=== PATIENT | female | born 1995 | race Caucasian/White ===

== ENCOUNTER 2021-01-17 09:50 | Emergency (ER) | payer SELFPAY ==
[~2021-01-17] VITALS: Ht 175.3 cm; Wt 122.8 kg
[2021-01-17 10:05] VITALS: BP 145/74
[2021-01-17] MEDS ORDERED: HYDROcodone/APAP 5/325MG 1 TAB TABLET PO ONE (10:15)
--- NOTE | 2021-01-17 10:30 | RAD ---
3 views left wrist without comparison for recent fall yesterday. FINDINGS: There is no fracture, dislocation, or acute osseous abnormality identified. Joints and soft tissues are grossly unremarkable. No radiopaque foreign bodies. IMPRESSION: 1. No acute osseous abnormality. Electronically signed by: Jaydon Acuña MD (01/17/2021 10:28 AM) [id number]
--- NOTE | 2021-01-17 10:31 | PHYS DOC ---
Past History Past Medical History: No Pertinent History Past Surgical History: Cholecystectomy, Gastric Bypass, Tonsillectomy Alcohol Use: None General Adult EDM: Chief Complaint: UPPER EXTREMITY PAIN HPI: HPI: Patient is a 25-year-old female with left upper extremity pain after a fall off a horse yesterday. Patient states she was standing on top of the horse try to do a trick when she fell off to the side and landed on her left outstretched arm. Complaining of pain from her hand to her shoulder. Denies any bleeding or other injury. Denies any paresthesias. She is right-handed. Otherwise been well no recent illness. No prior injuries to left upper extremity in the past. States she took ibuprofen this morning without improvement in pain Review of Systems: Review of Systems: All other systems within normal limits except for as noted in the HPI Current Medications: Current Meds: Current Medications Medications (Trade) Dose Ordered Sig/Kevin Start Time Stop Time Status Last Admin Dose Admin Acetaminophen/ Hydrocodone Bitart (Lortab 5/325) 1 tab 1X ONCE 01/17/21 10:15 01/17/21 10:16 DC Allergies: Allergies: Allergies Coded Allergies Type Severity Reaction Last Updated Verified Penicillins Allergy Unknown 01/17/21 Yes Physical Exam: PE: Constitutional: Well developed, well nourished, no acute distress, non-toxic appearance. [] HENT: Normocephalic, atraumatic, bilateral external ears normal, nose normal. [] Eyes: PERRLA, conjunctiva normal, no discharge. [] Neck: No rigidity, supple, no stridor. [] Cardiovascular: Regular rate and rhythm, brisk cap refill [] Lungs & Thorax: Non labored symmetric respirations, no tachypnea or respiratory distress [] Abdomen: Soft, nondistended. Skin: Warm, dry, no erythema, no rash. [] Back: Unremarkable Extremities: No deformities, range of motion grossly intact, no lower extremity edema. Tenderness over entire left upper exam, point tenderness over scaphoid [] Neurologic: Alert and oriented X 3, no focal deficits noted. Median, ulnar, and radial nerves intact. No sensory deficits [] Psychologic: Affect normal, judgement normal, mood normal. [] Current Patient Data: Vital Signs: Vital Signs Date Time Temp Pulse Resp B/P (MAP) Pulse Ox O2 Delivery O2 Flow Rate FiO2 3/2/21 10:05 97.8 80 16 145/74 (97) 98 Room Air EKG: EKG: [] Radiology/Procedures: Radiology/Procedures: 3 views left wrist without comparison for recent fall yesterday. FINDINGS: There is no fracture, dislocation, or acute osseous abnormality identified. Joints and soft tissues are grossly unremarkable. No radiopaque foreign bodies. IMPRESSION: 1. No acute osseous abnormality.[] Heart Score: Risk Factors: Risk Factors: DM, Current or recent (<one month) smoker, HTN, HLP, family history of CAD, obesity. Risk Scores: Score 0 - 3: 2.5% MACE over next 6 weeks - Discharge Home Score 4 - 6: 20.3% MACE over next 6 weeks - Admit for Clinical Observation Score 7 - 10: 72.7% MACE over next 6 weeks - Early Invasive Strategies Course & Med Decision Making: Course & Med Decision Making Pertinent Labs and Imaging studies reviewed. (See chart for details) Thumb spica splint placed due to snuffbox/scaphoid tenderness [] Dragon Disclaimer: Dragon Disclaimer: This electronic medical record was generated, in whole or in part, using a voice recognition dictation system. Departure Departure: Impression: Primary Impression: Injury of left upper extremity Disposition: 01 DC HOME SELF CARE/HOMELESS Condition: STABLE Referrals: REYMUNDO WU MD (PCP) Patient Instructions: Cast or Splint Care Additional Instructions: Follow-up with your primary care provider in 7 to 10 days for repeat x-rays and exam. Scripts Ibuprofen (IBUPROFEN) 800 Mg Tablet 1 TAB PO TID PRN for PAIN, #30 TAB Prov: ANDREAS MARTIN MD 01/17/21 Hydrocodone Bit/Acetaminophen (HYDROCODONE-APAP 5-325 ) 1 Each Tablet 1 TAB PO PRN Q6HRS PRN for PAIN for 3 Days, #10 TAB 0 Refills Caution: this medication can make you drowsy. Do not drive or operate heavy machinery when using this medication. Prov: ANDREAS MARTIN MD 01/17/21 ANDREAS MARTIN MD Jan 17, 2021 10:31
--- NOTE | 2021-01-17 10:31 | RAD ---
3 views left elbow without comparison for fall yesterday. FINDINGS: No radiographically evident fracture, dislocation, or acute osseous abnormality is identifi ed. No secondary signs of large joint effusion. No degenerative changes. No radiopaque foreign bodies . IMPRESSION: 1. No acute osseous abnormality. Electronically signed by: Jaydon Acuña MD (01/17/2021 10:29 AM) [id number]
--- NOTE | 2021-01-17 10:31 | RAD ---
3 views left shoulder without comparison for recent fall. FINDINGS: There is no fracture, dislocation, or acute osseous abnormality identified. Joints and soft tissues are grossly unremarkable. No significant degenerative changes. IMPRESSION: 1. No acute osseous abnormality. Electronically signed by: Jaydon Acuña MD (01/17/2021 10:28 AM) [id number]
[2021-01-17] MEDS ORDERED: IBUP800T19 PO (11:06)
[2021-01-17] MEDS ORDERED: HYDR-2155 PO (11:06)
== END 2021-01-17 11:10 | disposition home or self-care (01) ==
LOC: ER 09:50
DX: M79.602 Pain in left arm (principal); M25.512 Pain in left shoulder; M25.522 Pain in left elbow; Z90.49 Acquired absence of other specified parts of digestive tract; Z98.890 Other specified postprocedural states; Z90.89 Acquired absence of other organs; Z88.0 Allergy status to penicillin
CPT/HCPCS: 29125; 73030; 73080; 73110; 99284

== ENCOUNTER 2021-03-01 09:47 | Emergency (ER) | payer SELFPAY ==
[~2021-03-01] VITALS: Ht 165.1 cm; Wt 125.8 kg
[~2021-03-01 09:47] MED LIST: HYDR-2155 PO; IBUP800T19 PO
--- NOTE | 2021-03-01 10:23 | EKG ---
[address] [address] Test Date: 2021-03-01 Test Time: 10:17:09 Pat Name: JOHANNA CONKLIN Department: Room: Gender: F Cabinet Assembler: NIDA : 1995 Requested By: GUSTAVO TESFAYE Order Number: [id number] Reading MD: Measurements Intervals [place] Rate: 90 P: 26 CA: 120 QRS: 73 QRSD: 86 T: 30 QT: 346 QTc: 427 Interpretive Statements SINUS RHYTHM NORMAL ECG RI6.02 No previous ECG available for comparison
[2021-03-01 10:34] LABS: BASO # 0.1 x10^3/uL (0.0-0.2); BASO % 1 % (0-3); EOS # 0.2 x10^3/uL (0.0-0.7); EOS % 2 % (0-3); HEMATOCRIT 33.4 % (36.0-47.0); HEMOGLOBIN 10.3 g/dL (12.0-15.5); LYMPH # 1.5 x10^3/uL (1.0-4.8); LYMPH % 23 % (24-48); MEAN CORPUSCULAR HEMOGLOBIN 21 pg (25-35); MEAN CORPUSCULAR HGB CONC 31 g/dL (31-37); MEAN CORPUSCULAR VOLUME 67 fL (79-100); MONO # 0.5 x10^3/uL (0.0-1.1); MONO % 8 % (0-9); NEUT # 4.1 x10^3uL (1.8-7.7); NEUT % 66 % (31-73); PLATELET COUNT 350 x10^3/uL (140-400); RED BLOOD COUNT 4.95 x10^6/uL (3.50-5.40); RED CELL DISTRIBUTION WIDTH 17.6 % (11.5-14.5); WHITE BLOOD COUNT 6.3 x10^3/uL (4.0-11.0)
[2021-03-01 10:42] LABS: CALCIUM 8.9 mg/dL (8.5-10.1); CREATININE 0.8 mg/dL (0.6-1.0); GFR 88.1; POTASSIUM 3.9 mmol/L (3.5-5.1)
[2021-03-01 10:48] LABS: BILIRUBIN,URINE NEG (NEG); CLARITY,URINE CLEAR; COLOR,URINE YELLOW; GLUCOSE,URINE NEG (NEG); NITRITE,URINE NEG (NEG); UROBILINOGEN,URINE 0.2 mg/dL (0.2 mg/dL)
[2021-03-01 10:48] LABS: ALBUMIN 3.6 g/dL (3.4-5.0); ALBUMIN/GLOBULIN RATIO 0.8 (1.0-1.7); TOTAL BILIRUBIN 0.7 mg/dL (0.2-1.0)
[2021-03-01 10:49] LABS: RBC,URINE 0 /HPF (0-2)
[2021-03-01 10:50] LABS: BACTERIA,URINE FEW /HPF (0-FEW); SQUAMOUS EPITHELIAL CELL,UR FEW /LPF
[2021-03-01] MEDS ORDERED: IOHEXOL 240 MG/ML 50ML VIAL. ONE (10:56)
[2021-03-01 11:05] LABS: PLT ESTIMATE ADEQUATE (ADEQUATE)
[2021-03-01 11:06] LABS: ANISOCYTOSIS SLIGHT; HYPOCHROMIA MOD; MICROCYTOSIS MOD
[2021-03-01] MEDS ORDERED: IOHEXOL 240 MG/ML 50ML VIAL. PO ONE (11:15)
[2021-03-01] MEDS ORDERED: CONTRAST GIVEN. MC PRN (11:15)
[2021-03-01] MEDS ORDERED: IOHEXOL 300 MG/ML 75 ML VIAL. IV ONE (11:15)
--- NOTE | 2021-03-01 11:26 | RAD ---
INDICATION: Reason: chest pain / Spl. Instructions: / History: COMPARISON: None. FINDINGS: 2 views obtained of chest Hypoexpanded exam without definite focal airspace consolidation. Cardiac silhouette is unremarkable. No gross osseous destructive lesion. IMPRESSION: * No focal airspace consolidation or edema. Electronically signed by: Timoteo Vogt MD (03/01/2021 11:24 AM) [id number]
--- NOTE | 2021-03-01 12:26 | RAD ---
INDICATION: Reason: abd pain RLQ. DRINKING AT 1110 / Spl. Instructions: / History: . COMPARISON: None. TECHNIQUE: Axial CT images obtained through the abdomen and pelvis with contrast. One or more of the following individualized dose reduction techniques were utilized for this examinat ion: 1. Automated exposure control; 2. Adjustment of the mA and/or kV according to patient size; 3 . Use of iterative reconstruction technique. FINDINGS: Postoperative changes to the stomach. Abdominal aorta is not aneurysmal. No intrahepatic bile duct dilation. Postcholecystectomy changes. No peripancreatic fluid collection. Spleen prominent in size. No hydronephrosis. Urinary bladder has minimal urine within it at time of exam. The appendix is mildly enlarged proximally measuring up to 8 mm and tapers distally. There is no myriam cent inflammatory changes at this time. No dilated loops of bowel to suggest obstruction. there is some degenerative changes of the spine including a disc osteophyte complex at L5-S1 with as sociated central canal stenosis from the osteophytes and disc protrusion. IMPRESSION: * No hydronephrosis or evidence of bowel obstruction. * The appendix is mildly dilated proximally and tapers distally to a normal size. There is no adjace nt inflammatory changes therefore this does not fulfill all of the CT criteria for appendicitis. * Degenerative changes of the spine including disc protrusion and osteophyte formation at L5-S1 whic h appears to abut the nerve roots at this location. Electronically signed by: Timoteo Vogt MD (03/01/2021 12:24 PM) [id number]
[2021-03-01] MEDS ORDERED: METR500T PO (13:42)
[2021-03-01] MEDS ORDERED: HYOS0.1265 SL (13:42)
[2021-03-01] MEDS ORDERED: HYOSCYAMINE 0.125 MG TAB.RAPDIS PO ONE (13:45)
--- NOTE | 2021-03-01 13:46 | PHYS DOC ---
Past History Past Medical History: No Pertinent History Past Surgical History: Cholecystectomy, Gastric Bypass, Tonsillectomy Alcohol Use: None Adult General Chief Complaint Chief Complaint: ABDOMINAL PAIN HPI HPI Patient is 25-year-old previously healthy female presents to the emergency room complaining of right lower quadrant abdominal pain. This started over the last 48 hours. She has had 4 episodes of vomiting since it started. She has been able to continue to eat. She denies any fevers, chills, sweats. She denies any diarrhea or constipation. She has never had anything like this previously. She denies any urinary complaints. She denies any vaginal bleeding or discharge. She denies any kind of trauma. Review of Systems Review of Systems Complete ROS is negative unless otherwise documented in HPI Current Medications Current Medications Current Medications Medications (Trade) Dose Ordered Sig/Kevin Start Time Stop Time Status Last Admin Dose Admin Info (Do NOT chart on this entry -- for MONITORING) 1 each PRN DAILY PRN 03/01/21 11:15 03/03/21 11:14 Iohexol (Omnipaque 240 Mg/ml) 50 ml 1X ONCE 03/01/21 11:15 03/01/21 11:16 DC 03/01/21 11:51 50 ML Iohexol (Omnipaque 300 Mg/ml) 75 ml 1X ONCE 03/01/21 11:15 03/01/21 11:16 DC 03/01/21 11:51 75 ML Allergies Allergies Allergies Coded Allergies Type Severity Reaction Last Updated Verified Penicillins Allergy Unknown 01/17/21 Yes Physical Exam Physical Exam General: Awake, alert, NAD. Well Nourished, well hydrated. Cooperative HEENT: Atraumatic, EOMI, PERRL, airway patent, moist oral mucosa Neck: Supple, trachea midline Respiratory: CTA bilaterally, normal effort, no wheezing/crackles CV: RRR, no murmur, cap refill <2 GI: Soft, nondistended right lower quadrant tenderness, no rebound, no guarding no masses MSK: No obvious deformities Skin: Warm, dry, intact Neuro: A&O x3, speech NL, sensory and motor grossly intact, no focal deficits Psych: Normal affect, normal mood, not suicidal or homicidal Current Patient Data Vital Signs Vital Signs Date Time Temp Pulse Resp B/P (MAP) Pulse Ox O2 Delivery O2 Flow Rate FiO2 03/01/21 12:34 72 20 129/76 (93) 99 Room Air 03/01/21 10:10 97.6 Lab Results Laboratory Tests Test 03/01/21 10:07 03/01/21 10:11 03/01/21 10:18 Urine Collection Type Unknown Urine Color Yellow Urine Clarity Clear Urine pH 6.0 Urine Specific [place] >=1.030 Urine Protein Neg (NEG-TRACE) Urine Glucose (UA) Neg mg/dL (NEG) Urine Ketones (Stick) Neg mg/dL (NEG) Urine Blood Neg (NEG) Urine Nitrite Neg (NEG) Urine Bilirubin Neg (NEG) Urine Urobilinogen Dipstick 0.2 mg/dL (0.2 mg/dL) Urine Leukocyte Esterase Trace (NEG) Urine RBC 0 /HPF (0-2) Urine WBC 1-4 /HPF (0-4) Urine Squamous Epithelial Cells Few /LPF Urine Bacteria Few /HPF (0-FEW) POC Urine HCG, Qualitative hcg negative (Negative) White Blood Count 6.3 x10^3/uL (4.0-11.0) Red Blood Count 4.95 x10^6/uL (3.50-5.40) Hemoglobin 10.3 g/dL (12.0-15.5) L Hematocrit 33.4 % (36.0-47.0) L Mean Corpuscular Volume 67 fL (79-100) L Mean Corpuscular Hemoglobin 21 pg (25-35) L Mean Corpuscular Hemoglobin Concent 31 g/dL (31-37) Red Cell Distribution Width 17.6 % (11.5-14.5) H Platelet Count 350 x10^3/uL (140-400) Neutrophils (%) (Auto) 66 % (31-73) Lymphocytes (%) (Auto) 23 % (24-48) L Monocytes (%) (Auto) 8 % (0-9) Eosinophils (%) (Auto) 2 % (0-3) Basophils (%) (Auto) 1 % (0-3) Neutrophils # (Auto) 4.1 x10^3uL (1.8-7.7) Lymphocytes # (Auto) 1.5 x10^3/uL (1.0-4.8) Monocytes # (Auto) 0.5 x10^3/uL (0.0-1.1) Eosinophils # (Auto) 0.2 x10^3/uL (0.0-0.7) Basophils # (Auto) 0.1 x10^3/uL (0.0-0.2) Platelet Estimate Adequate (ADEQUATE) Hypochromasia Mod Anisocytosis Slight Microcytosis Mod Sodium Level 138 mmol/L (136-145) Potassium Level 3.9 mmol/L (3.5-5.1) Chloride Level 105 mmol/L (98-107) Carbon Dioxide Level 25 mmol/L (21-32) Anion Gap 8 (6-14) Blood Urea Nitrogen 8 mg/dL (7-20) Creatinine 0.8 mg/dL (0.6-1.0) Estimated GFR (Cockcroft-Gault) 88.1 BUN/Creatinine Ratio 10 (6-20) Glucose Level 97 mg/dL (70-99) Calcium Level 8.9 mg/dL (8.5-10.1) Total Bilirubin 0.7 mg/dL (0.2-1.0) Aspartate Amino Transferase (AST) 16 U/L (15-37) Alanine Aminotransferase (ALT) 25 U/L (14-59) Alkaline Phosphatase 66 U/L (46-116) Total Protein 8.0 g/dL (6.4-8.2) Albumin 3.6 g/dL (3.4-5.0) Albumin/Globulin Ratio 0.8 (1.0-1.7) L Lipase 108 U/L (73-393) EKG EKG [] Radiology/Procedures Radiology/Procedures [] Heart Score C/O Chest Pain: N/A Risk Factors: Risk Factors: DM, Current or recent (<one month) smoker, HTN, HLP, family history of CAD, obesity. Risk Scores: Risk Factors: DM, Current or recent (<one month) smoker, HTN, HLP, family history of CAD, obesity. Course & Med Decision Making Course & Med Decision Making Pertinent Labs and Imaging studies reviewed. (See chart for details) Patient is a 25-year-old female who presents to the emergency room complaining of right lower quadrant abdominal pain with vomiting. Patient does have tenderness on exam. Vitals are normal. Lab work was ordered and is normal. Patient does not have a white blood cell count. CT was done which shows maybe some dilation of the appendix but is otherwise normal. I discussed the case with Dr. Sung who states that it does not appear she has appendicitis at this time. Patient's test results and vitals while in the ED were fully reviewed and discussed with the patient. Patient is stable and at this time does not need admission to the hospital. We have discussed strict return precautions and the importance of following up with their Primary Care Physician. Patient stated understanding and was given an opportunity to ask any questions. Patient is in agreement with plan. Dragon Disclaimer Dragon Disclaimer This electronic medical record was generated, in whole or in part, using a voice recognition dictation system. Departure Departure: Impression: Primary Impression: Abdominal pain Disposition: HOME / SELF CARE / HOMELESS Condition: STABLE Referrals: PCP,NO (PCP) Patient Instructions: Abdominal Pain Scripts Hyoscyamine Sulfate (LEVSIN-SL) 0.125 Mg Tab.subl 2-Elmo TAB SL PRN Q4HRS PRN for pain for 5 Days, #60 TAB 0 Refills Prov: GUSTAVO TESFAYE MD 03/01/21 Metronidazole (FLAGYL) 500 Mg Tablet 1 TAB PO BID for infx, #14 TAB Prov: GUSTAVO TESFAYE MD 03/01/21 GUSTAVO TESFAYE MD Mar 01, 2021 13:46
[2021-03-01 14:05] VITALS: BP 118/71
== END 2021-03-01 14:20 | disposition home or self-care (01) ==
LOC: ER 09:47
DX: R10.31 Right lower quadrant pain (principal); R11.10 Vomiting, unspecified; Z90.49 Acquired absence of other specified parts of digestive tract; Z98.84 Bariatric surgery status; Z88.0 Allergy status to penicillin
CPT/HCPCS: 36415; 71046; 74177; 80053; 81001; 81025; 83690; 85025; 87086; 93005; 99285; Q9966; Q9967

== ENCOUNTER 2021-03-06 08:20 | Emergency (ER) | payer SELFPAY ==
[~2021-03-06] VITALS: Ht 165.1 cm; Wt 125.8 kg
[~2021-03-06 08:20] MED LIST changes: +HYOS0.1265 SL; +METR500T PO
[2021-03-06] MEDS ORDERED: ONDANSETRON PF 4 MG/2 ML VIAL. ONE (08:43)
[2021-03-06] MEDS ORDERED: KETOROLAC 30 MG/ML VIAL. ONE (08:43)
[2021-03-06] MEDS ORDERED: IV NORMAL SALINE 1,000ML 1,000 ML IV ONE (08:45)
[2021-03-06] MEDS ORDERED: KETOROLAC 30 MG/ML VIAL. IVP ONE (08:45)
[2021-03-06] MEDS ORDERED: ONDANSETRON PF 4 MG/2 ML VIAL. IVP ONE (08:45)
--- NOTE | 2021-03-06 08:58 | PHYS DOC ---
Past History Past Medical History: No Pertinent History Past Surgical History: Cholecystectomy, Gastric Bypass, Tonsillectomy Alcohol Use: None General Adult EDM: Chief Complaint: ABDOMINAL PAIN HPI: HPI: 25-year-old female returns to the emergency room with continued right lower quadrant abdominal pain. She was seen by my colleague on [address] of the abdomen and pelvis showed an enlarged appendix but no secondary signs of infection. Patient was discharged home with a course of oral antibiotics. She was given instructions to return if her pain did not improve or if it worsened. The patient is having more pain today. She describes it as moderate to severe in intensity especially with palpation of the right lower quadrant. It is painful to ride in a car with bouncing. She denies fever or chills. She has been taking her antibiotics. She has decreased appetite and some nausea without vomiting. She has no other complaints at this time. Review of Systems: Review of Systems: Constitutional: Denies fever or chills Eyes: Denies change in visual acuity HENT: Denies nasal congestion or sore throat Respiratory: Denies cough or shortness of breath Cardiovascular: Denies chest pain or edema GI: Right lower quadrant abdominal pain, nausea. Denies vomiting, bloody stools or diarrhea : Denies dysuria Musculoskeletal: Denies back pain or joint pain Integument: Denies rash Neurologic: Denies headache, focal weakness or sensory changes Endocrine: Denies polyuria or polydipsia Lymphatic: Denies swollen glands Psychiatric: Denies depression or anxiety Current Medications: Current Meds: Current Medications Medications (Trade) Dose Ordered Sig/Kevin Start Time Stop Time Status Last Admin Dose Admin Iohexol (Omnipaque 300 Mg/ml) 75 ml 1X ONCE 03/06/21 09:00 03/06/21 09:01 Ketorolac Tromethamine (Toradol 30mg Vial) 30 mg 1X ONCE 03/06/21 08:45 03/06/21 08:46 DC Ondansetron HCl (Zofran) 4 mg 1X ONCE 03/06/21 08:45 03/06/21 08:46 DC Sodium Chloride 1,000 ml @ 1,000 mls/hr 1X ONCE 03/06/21 08:45 03/06/21 09:44 Allergies: Allergies: Allergies Coded Allergies Type Severity Reaction Last Updated Verified Penicillins Allergy Unknown 03/06/21 Yes Physical Exam: PE: Constitutional: Well developed, well nourished, morbidly obese, no acute distress, non-toxic appearance. [] HENT: Normocephalic, atraumatic, bilateral external ears normal, oropharynx moist, no oral exudates, nose normal. [] Eyes: PERRLA, EOMI, conjunctiva normal, no discharge. [] Neck: Normal range of motion, no tenderness, supple, no stridor. [] Cardiovascular:Heart rate regular rhythm, no murmur [] Lungs & Thorax: Bilateral breath sounds clear to auscultation [] Abdomen: Bowel sounds normal, soft, RLQ tenderness with rebound, no masses, no pulsatile masses. [] Skin: Warm, dry, no erythema, no rash. [] Back: No tenderness, no CVA tenderness. [] Extremities: No tenderness, no cyanosis, no clubbing, ROM intact, no edema. [] Neurologic: Alert and oriented X 3, normal motor function, normal sensory function, no focal deficits noted. [] Psychologic: Affect normal, judgement normal, mood normal. [] Current Patient Data: Vital Signs: Vital Signs Date Time Temp Pulse Resp B/P (MAP) Pulse Ox O2 Delivery O2 Flow Rate FiO2 03/06/21 08:30 97.6 86 18 142/79 (100) 98 Room Air EKG: EKG: [] Radiology/Procedures: Radiology/Procedures: [] Impressions: EXAMINATION: CT ABDOMEN+PELVIS W (CT ABDOMEN/PELVIS WITH IV CONTRAST) CLINICAL HISTORY: RLQ pain, recent enlarged appendix by CT TECHNIQUE: CT of the abdomen and pelvis was performed using standard technique, scanning from just above the dome of the diaphragm to the symphysis pubis follo wing administration of intravenous contrast. CT Dose Reduction Employed: One or more of the following individualized dose red uction techniques were utilized for this examination: 1. Automated exposure control 2. Adjustment of the mA and/or kV according to patient size 3. Use of iterative reconstruction technique. COMPARISON: 03/01/2021 FINDINGS: The appendix and measures up to 8 mm proximally and tapers distally, possibly normal for the patient. Slight prominence of the appendiceal yao, however, this is thought to most likely be related to minimal appendiceal distention. Small area of increased attenuation in the proximal appendix, not diagnostic of a appendicolith and may represent residual enteric contrast from prior CT 5 days ago. No significant periappendiceal inflammatory changes. Slightly more prominent mildly increased attenuation in the small bowel mesentery, predominantly in the left hemiabdomen, with multiple small soft tissue nodules/prominent lymph nodes suggestive of mesenteric panniculitis. Remainder of the study otherwise unchanged. 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 No definitive evidence of acute appendicitis as described. Electronically signed by: Jasiel Taveras DO (03/06/2021 10:11 AM) [id number] DICTATED AND SIGNED BY: JASIEL TAVERAS DO DATE: 03/06/21 0955 CC: CHRISTIN HERNANDEZ DO; PCP,NO ~MTH0 0 Heart Score: C/O Chest Pain: No Risk Factors: Risk Factors: DM, Current or recent (<one month) smoker, HTN, HLP, family history of CAD, obesity. Risk Scores: Score 0 - 3: 2.5% MACE over next 6 weeks - Discharge Home Score 4 - 6: 20.3% MACE over next 6 weeks - Admit for Clinical Observation Score 7 - 10: 72.7% MACE over next 6 weeks - Early Invasive Strategies Course & Med Decision Making: Course & Med Decision Making Pertinent Labs and Imaging studies reviewed. (See chart for details) Patient's labs are remarkable for mild anemia. This is similar to previous lab values. Her white count is normal. Her other labs are unremarkable. The repeat CT does not show changes to the appendix and surrounding area. There is some evidence of mesenteric panniculitis. See official read for more details. I suspect the patient's discomfort is more related to this process which could be viral. She is already on antibiotics which she should continue. It does not appear that appendix surgery is warranted at this time. She is stable for discharge. [] Dragon Disclaimer: Dragon Disclaimer: This electronic medical record was generated, in whole or in part, using a voice recognition dictation system. Departure Departure: Impression: Primary Impression: Mesenteric panniculitis Disposition: HOME / SELF CARE / HOMELESS Condition: STABLE Referrals: PCP,NO (PCP) Patient Instructions: Mesenteric Adenitis CHRISTIN HERNANDEZ DO Mar 06, 2021 08:58
[2021-03-06] MEDS ORDERED: IOHEXOL 300 MG/ML 75 ML VIAL. IV ONE (09:00)
[2021-03-06 09:11] LABS: BASO % 1 % (0-3); EOS # 0.2 x10^3/uL (0.0-0.7); EOS % 3 % (0-3); HEMATOCRIT 34.1 % (36.0-47.0); HEMOGLOBIN 10.4 g/dL (12.0-15.5); LYMPH # 1.3 x10^3/uL (1.0-4.8); LYMPH % 22 % (24-48); MEAN CORPUSCULAR HEMOGLOBIN 21 pg (25-35); MEAN CORPUSCULAR HGB CONC 31 g/dL (31-37); MEAN CORPUSCULAR VOLUME 67 fL (79-100); MONO # 0.4 x10^3/uL (0.0-1.1); MONO % 7 % (0-9); NEUT # 3.9 x10^3uL (1.8-7.7); NEUT % 67 % (31-73); PLATELET COUNT 342 x10^3/uL (140-400); RED BLOOD COUNT 5.05 x10^6/uL (3.50-5.40); RED CELL DISTRIBUTION WIDTH 17.1 % (11.5-14.5); WHITE BLOOD COUNT 5.8 x10^3/uL (4.0-11.0)
[2021-03-06 09:20] LABS: CREATININE 0.8 mg/dL (0.6-1.0); GFR 88.1; POTASSIUM 4.2 mmol/L (3.5-5.1)
[2021-03-06 09:25] LABS: ALBUMIN 3.5 g/dL (3.4-5.0); ALBUMIN/GLOBULIN RATIO 0.8 (1.0-1.7); TOTAL BILIRUBIN 0.8 mg/dL (0.2-1.0); TOTAL PROTEIN 8.1 g/dL (6.4-8.2)
--- NOTE | 2021-03-06 10:13 | RAD ---
EXAMINATION: CT ABDOMEN+PELVIS W (CT ABDOMEN/PELVIS WITH IV CONTRAST) CLINICAL HISTORY: RLQ pain, recent enlarged appendix by CT TECHNIQUE: CT of the abdomen and pelvis was performed using standard technique, scanning from just ab ove the dome of the diaphragm to the symphysis pubis following administration of intravenous contrast . CT Dose Reduction Employed: One or more of the following individualized dose reduction techniques wer e utilized for this examination: 1. Automated exposure control 2. Adjustment of the mA and/or kV ac cording to patient size 3. Use of iterative reconstruction technique. COMPARISON: 03/01/2021 FINDINGS: The appendix and measures up to 8 mm proximally and tapers distally, possibly normal for the patient. Slight prominence of the appendiceal yao, however, this is thought to most likely be related to mi nimal appendiceal distention. Small area of increased attenuation in the proximal appendix, not diagn ostic of a appendicolith and may represent residual enteric contrast from prior CT 5 days ago. No sig nificant periappendiceal inflammatory changes. Slightly more prominent mildly increased attenuation in the small bowel mesentery, predominantly in t he left hemiabdomen, with multiple small soft tissue nodules/prominent lymph nodes suggestive of mese nteric panniculitis. Remainder of the study otherwise unchanged. 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 No definitive evidence of acute appendicitis as described. Electronically signed by: Jasiel Moore DO (03/06/2021 10:11 AM) [id number]
[2021-03-06 10:17] LABS: HYPOCHROMIA MOD
[2021-03-06 10:18] LABS: MICROCYTOSIS MOD; PLT ESTIMATE ADEQUATE (ADEQUATE)
[2021-03-06 10:42] VITALS: BP 117/65
== END 2021-03-06 10:48 | disposition home or self-care (01) ==
LOC: ER 08:20
DX: K65.4 Sclerosing mesenteritis (principal); Z90.49 Acquired absence of other specified parts of digestive tract; Z95.1 Presence of aortocoronary bypass graft; Z88.0 Allergy status to penicillin
CPT/HCPCS: 36415; 74177; 80053; 85025; 96361; 96374; 96375; 99285; J1885; J2405; J7030; Q9967

== ENCOUNTER 2021-07-03 14:15 | Emergency (ER) | payer SELFPAY ==
[~2021-07-03] VITALS: Ht 165.1 cm; Wt 130.0 kg
[2021-07-03 15:06] VITALS: BP 145/95
[2021-07-03 15:07] LABS: BASO % 0 % (0-3); EOS # 0.1 x10^3/uL (0.0-0.7); EOS % 1 % (0-3); HEMATOCRIT 39.7 % (36.0-47.0); HEMOGLOBIN 12.5 g/dL (12.0-15.5); LYMPH # 1.3 x10^3/uL (1.0-4.8); LYMPH % 18 % (24-48); MEAN CORPUSCULAR HEMOGLOBIN 23 pg (25-35); MEAN CORPUSCULAR HGB CONC 31 g/dL (31-37); MEAN CORPUSCULAR VOLUME 74 fL (79-100); MONO # 0.4 x10^3/uL (0.0-1.1); MONO % 5 % (0-9); NEUT # 5.7 x10^3uL (1.8-7.7); NEUT % 75 % (31-73); PLATELET COUNT 283 x10^3/uL (140-400); RED BLOOD COUNT 5.36 x10^6/uL (3.50-5.40); RED CELL DISTRIBUTION WIDTH 15.9 % (11.5-14.5); WHITE BLOOD COUNT 7.5 x10^3/uL (4.0-11.0)
[2021-07-03 15:46] LABS: CALCIUM 8.5 mg/dL (8.5-10.1); CREATININE 0.8 mg/dL (0.6-1.0); GFR 88.1; POTASSIUM 3.3 mmol/L (3.5-5.1)
[2021-07-03 15:54] LABS: ALBUMIN 3.7 g/dL (3.4-5.0); ALBUMIN/GLOBULIN RATIO 0.9 (1.0-1.7); TOTAL BILIRUBIN 0.7 mg/dL (0.2-1.0); TOTAL PROTEIN 7.7 g/dL (6.4-8.2)
--- NOTE | 2021-07-03 16:46 | RAD ---
US OB <14 WKS +TV History: Vaginal spotting in . Comparison: CT abdomen pelvis 03/06/2021 Technique: Sonographic examination of the pelvis was performed with transabdominal and transvaginal t echnique. Findings: Uterus- Uterine parenchyma: Homogeneous without fibroids. Uterine measurements: 7.6 x 3.1 x 4.4 cm Cervix: Unremarkable. Endometrium- Endometrial Stripe: No gestational sac. Yolk sac identified. No abnormal fluid collections in the end ometrial cavity, no obvious mass, and no abnormal blood flow within the endometrium by Doppler. Thickness: 11 mm. Adnexa- Right Ovary: Identified and appears normal. Size: 2.8 x 1.7 x 2.5 cm Doppler: Normal. Left Ovary: Not identified with transabdominal or transvaginal technique. Mass: No abnormal adnexal masses. Fluid: No abnormal free fluid in the pelvis. Additional findings: None. Impression: 1. No intrauterine gestation or ectopic identified. This is consistent with a of unknown location. Differential includes early intrauterine , occult ectopic or failed early . Recommend close follow-up with beta hCG testing and repeat ultrasound if indicated. 2. Nonvisualization of the left ovary. No left adnexal masses. Electronically signed by: Sohail Jeong MD (07/03/2021 4:44 PM) [id number]
--- NOTE | 2021-07-03 17:21 | PHYS DOC ---
Past History Past Medical History: No Pertinent History (CONCETTA CANTU APRN) Past Surgical History: Appendectomy, Cholecystectomy, Gastric Bypass, Tonsillectomy (CONCETTA CANTU APRN) Alcohol Use: None (CONCETTA CANTU APRN) General Adult EDM: Chief Complaint: DIZZY/LIGHT HEADED HPI: HPI: Patient is a 25-year-old female who presents with light vaginal bleeding with . Patient states "when I wiped I had some light bleeding". Patient does report some light cramping in her lower abdomen. Last menstrual period was 05/26. G1, P0. Denies medical history. (CONCETTA CANTU APRN) Review of Systems: Review of Systems: Constitutional: Denies fever or chills Eyes: Denies change in visual acuity HENT: Denies nasal congestion or sore throat Respiratory: Denies cough or shortness of breath Cardiovascular: Denies chest pain or edema GI: Reports lower abdominal pain.denies nausea, vomiting, bloody stools or di arrhea /vaginal: Denies dysuria. Reports light vaginal bleeding. Musculoskeletal: Denies back pain or joint pain Integument: Denies rash Neurologic: Denies headache, focal weakness or sensory changes Endocrine: Denies polyuria or polydipsia Lymphatic: Denies swollen glands Psychiatric: Denies depression or anxiety (CONCETTA CANTU APRN) Allergies: Allergies: Allergies Coded Allergies Type Severity Reaction Last Updated Verified Penicillins Allergy Unknown 03/06/21 Yes (CONCETTA CANTU APRN) Physical Exam: PE: Constitutional: Well developed, well nourished, no acute distress, non-toxic appearance. [] HENT: Normocephalic, atraumatic, bilateral external ears normal, oropharynx moist, no oral exudates, nose normal. [] Eyes: PERRLA, EOMI, conjunctiva normal, no discharge. [] Neck: Normal range of motion, no tenderness, supple, no stridor. [] Cardiovascular:Heart rate regular rhythm, no murmur [] Lungs & Thorax: Bilateral breath sounds clear to auscultation [] Abdomen: Bowel sounds normal, soft, no tenderness, no masses, no pulsatile masses. [] Skin: Warm, dry, no erythema, no rash. [] Back: No tenderness, no CVA tenderness. [] Extremities: No tenderness, no cyanosis, no clubbing, ROM intact, no edema. [] Neurologic: Alert and oriented X 3, normal motor function, normal sensory fun ction, no focal deficits noted. [] Psychologic: Affect normal, judgement normal, mood normal. [] (CONCETTA CANTU APRN) Current Patient Data: Labs: Laboratory Tests Test 07/03/21 14:40 07/03/21 15:15 07/03/21 16:00 07/03/21 16:06 White Blood Count 7.5 x10^3/uL (4.0-11.0) Red Blood Count 5.36 x10^6/uL (3.50-5.40) Hemoglobin 12.5 g/dL (12.0-15.5) Hematocrit 39.7 % (36.0-47.0) Mean Corpuscular Volume 74 fL (79-100) L Mean Corpuscular Hemoglobin 23 pg (25-35) L Mean Corpuscular Hemoglobin Concent 31 g/dL (31-37) Red Cell Distribution Width 15.9 % (11.5-14.5) H Platelet Count 283 x10^3/uL (140-400) Neutrophils (%) (Auto) 75 % (31-73) H Lymphocytes (%) (Auto) 18 % (24-48) L Monocytes (%) (Auto) 5 % (0-9) Eosinophils (%) (Auto) 1 % (0-3) Basophils (%) (Auto) 0 % (0-3) Neutrophils # (Auto) 5.7 x10^3uL (1.8-7.7) Lymphocytes # (Auto) 1.3 x10^3/uL (1.0-4.8) Monocytes # (Auto) 0.4 x10^3/uL (0.0-1.1) Eosinophils # (Auto) 0.1 x10^3/uL (0.0-0.7) Basophils # (Auto) 0.0 x10^3/uL (0.0-0.2) Sodium Level 141 mmol/L (136-145) Potassium Level 3.3 mmol/L (3.5-5.1) L Chloride Level 105 mmol/L (98-107) Carbon Dioxide Level 24 mmol/L (21-32) Anion Gap 12 (6-14) Blood Urea Nitrogen 8 mg/dL (7-20) Creatinine 0.8 mg/dL (0.6-1.0) Estimated GFR (Cockcroft-Gault) 88.1 BUN/Creatinine Ratio 10 (6-20) Glucose Level 85 mg/dL (70-99) Calcium Level 8.5 mg/dL (8.5-10.1) Total Bilirubin 0.7 mg/dL (0.2-1.0) Aspartate Amino Transferase (AST) 15 U/L (15-37) Alanine Aminotransferase (ALT) 26 U/L (14-59) Alkaline Phosphatase 61 U/L (46-116) Total Protein 7.7 g/dL (6.4-8.2) Albumin 3.7 g/dL (3.4-5.0) Albumin/Globulin Ratio 0.9 (1.0-1.7) L Maternal Serum HCG Beta Subunit 218 mIU/mL (0-6) H POC Urine HCG, Qualitative hcg positive (Negative) Vital Signs: Vital Signs Date Time Temp Pulse Resp B/P (MAP) Pulse Ox O2 Delivery O2 Flow Rate FiO2 07/03/21 15:06 94 18 145/95 99 (CONCETTA CANTU APRN) EKG: EKG: [] (CONCETTA CANTU APRN) Radiology/Procedures: Radiology/Procedures: [] (CONCETTA CANTU APRN) Heart Score: C/O Chest Pain: No Risk Factors: Risk Factors: DM, Current or recent (<one month) smoker, HTN, HLP, family history of CAD, obesity. Risk Scores: Score 0 - 3: 2.5% MACE over next 6 weeks - Discharge Home Score 4 - 6: 20.3% MACE over next 6 weeks - Admit for Clinical Observation Score 7 - 10: 72.7% MACE over next 6 weeks - Early Invasive Strategies (CONCETTA CANTU APRN) Course & Med Decision Making: Course & Med Decision Making Pertinent Labs and Imaging studies reviewed. (See chart for details) [] 25-year-old female presents with light vaginal bleeding and mild abdominal cramping in her lower abdomen. Last menstrual period was 05/26. Patient is G1, P0. Quant hCG was drawn. Discussed results with patient. Explained to patient that she would need to follow-up with her SEWAGE SCREEN OPERATOR in 48 hours to have blood redrawn or return to the ER for second quant levels. Patient is most likely too early on in to see gestational sac. Patient states that she understands discharge instructions. Patient was given strict return precautions for an increase in pain, bleeding. Patient is hemodynamically stable upon disposition. (CONCETTA CANTU APRN) Course & Med Decision Making I oversaw on the above date of service of this patient. This patient was evaluated, examined, treated, and dispositioned from the emergency department by the mid-level practitioner. Although I was working at the time , no assistance was requested. Electronically signed, Clark Grover DO (CLARK GROVER DO) Ananya Disclaimer: Ananya Disclaimer: This electronic medical record was generated, in whole or in part, using a voice recognition dictation system. (CONCETTA CANTU APRN) Departure Departure: Impression: Primary Impression: Vaginal bleeding in Disposition: HOME / SELF CARE / HOMELESS Condition: STABLE Referrals: PCP,NO (PCP) Patient Instructions: Vaginal Bleeding During , [id number] Additional Instructions: You were seen in the emergency room for vaginal bleeding. Your most likely to early on in the to be able to identify gestational sac on ultrasound. Your quant hCG levels were drawn. You will need to return to the emergency room or to your SEWAGE SCREEN OPERATOR in 48 hours to have a second level drawn. Return to the emergency room if you have an increase in bleeding or worsening pain. You can take Tylenol for discomfort. EMERGENCY DEPARTMENT GENERAL DISCHARGE INSTRUCTIONS Thank you for coming to [facility] (ED) today and trusting us with you care. We trust that you had a positivie experience in our Emergency Department. If you wish to speak to the department management, you may call the director at [phone]. YOUR FOLLOW UP INSTRUCTIONS ARE FOLLOWS: 1. Do you have a private Doctor? If you do not have a private doctor, please ask for a resource list of physicians or clinics that may be able to assist you with follow up care. 2. The Emergency Physician has interpreted your x-rays. The X-Ray specialist will also review them. If there is a change in the findings, you will be notified in 48 hours when at all possible. 3. A lab test or culture has been done, your results will be reviewed and you will be notified if you need a change in treatment. ADDITIONAL INSTRUCTIONS AND INFORMATION: 1. Your care today has been supervised by a physician who is specially trained in emergency care. Many problems require more than one evaluation for a complete diagnosis and treatment. We recommend that you schedule your follow up appointment as recommended to ensure complete treatment of you illness or injury. If you are unable to obtain follow up care and continue to have a problem, or if your condition worsens, we recommend that you return to the ED. 2. We are not able to safely determine your condition over the phone nor are we able to give sound medical advice over the phone. For these safety reasons, if you call for medical advice we will ask you to come to the ED for further evaluation. 3. If you have any questions regarding these discharge instructions please call the ED at [phone]. SAFETY INFORMATION: In the interest of safety, wellness, and injury prevention; we encourage you to wear your sealbelt, if you smoke; quite smoking, and we encourage family to use a protective helmet for bicycling and other sporting events that present an increased risk for head injury. IF YOUR SYMPTOMS WORSEN OR NEW SYMPTOMS DEVELOP, OR YOU HAVE CONCERNS ABOUT YOUR CONDITION; OR IF YOUR CONDITION WORSENS WHILE YOU ARE WAITING FOR YOUR FOLLOW UP APPOINTMENT; EITHER CONTACT YOUR PRIMARY CARE DOCTOR, THE PHYSICIAN WHOSE NAME AND NUMBER YOU WERE GIVEN, OR RETURN TO THE ED IMMEDIATELY. CONCETTA CANTU APRN Jul 03, 2021 17:21 CLARK GROVER DO Jul 04, 2021 06:54
--- NOTE | 2021-07-03 17:36 | EKG ---
[address] [address] Test Date: 2021-07-03 Test Time: 14:55:33 Pat Name: JOHANNA CONKLIN Department: Room: Gender: F Circular Knife Cutter Machine: ESTEFANIA : 1995 Requested By: CLARK GROVRE Order Number: [id number] Reading MD: Measurements Intervals [place] Rate: 94 P: 22 AL: 124 QRS: 65 QRSD: 88 T: 19 QT: 348 QTc: 435 Interpretive Statements SINUS RHYTHM NORMAL ECG RI6.02 No previous ECG available for comparison
== END 2021-07-03 17:26 | disposition home or self-care (01) ==
LOC: ER 14:15
DX: O20.8 Other hemorrhage in early pregnancy (principal); Z3A.01 Less than 8 weeks gestation of pregnancy
CPT/HCPCS: 36415; 76801; 76817; 80053; 81025; 84702; 85025; 86850; 86900; 86901; 93005; 99285-25

== ENCOUNTER 2021-07-05 12:58 | Emergency (ER) | payer SELFPAY ==
[~2021-07-05] VITALS: Ht 160 cm; Wt 131.0 kg
[2021-07-05 13:05] VITALS: BP 127/71
--- NOTE | 2021-07-05 13:59 | PHYS DOC ---
Past History Past Medical History: No Pertinent History (ISAURO DREW APRN) Past Surgical History: Appendectomy, Cholecystectomy, Gastric Bypass, Tonsillectomy (ISAURO DREW APRN) Alcohol Use: None (ISAURO DREW APRN) General Adult EDM: Chief Complaint: ABNORMAL LABS HPI: HPI: Patient is a 25-year-old female being seen in the ER for a lab draw. Patient reports that she is 5 weeks and was seen a few days ago in this ER for light pink vaginal bleeding. At that time her beta hCG levels were 218 and she had a normal ultrasound. She was told to follow-up in 2 days with her OB to have her beta hCG levels rechecked. Patient reports that she was unable to get into her OB who is Dr. Weiss in a timely manner so decided to return here to have her beta hCG levels checked. Patient denies any abdominal/pelvic pain, vaginal bleeding, nausea, vomiting. Her last menstrual period was May 26. G1, P0. (ISAURO DREW APRN) Review of Systems: Review of Systems: 14 body systems of the review of systems have been reviewed. See HPI for pertinent positive and negative responses, otherwise all other systems are negative, nonpertinent or noncontributory (ISAURO DREW APRN) Allergies: Allergies: Allergies Coded Allergies Type Severity Reaction Last Updated Verified Penicillins Allergy Unknown 03/06/21 Yes (ISAURO DREW APRN) Physical Exam: PE: Constitutional: Well developed, well nourished, no acute distress, non-toxic appearance. [] HENT: Normocephalic, atraumatic Eyes: PERRL, EOMI, conjunctiva normal, no discharge. [] Neck: Normal range of motion, no stridor Cardiovascular:Heart rate regular rhythm, no murmur [] Lungs & Thorax: Bilateral breath sounds clear to auscultation [] Abdomen: Bowel sounds normal, soft, no tenderness, no masses, no pulsatile m asses. [] Skin: Warm, dry, no erythema, no rash. [] Back: Normal range of motion Extremities: No tenderness, no cyanosis, no clubbing, ROM intact, no edema. [] Neurologic: Alert and oriented X 3, normal motor function, normal sensory function, no focal deficits noted. [] Psychologic: Affect normal, judgement normal, mood normal. [] (ISAURO DREW APRN) Current Patient Data: Labs: Laboratory Tests Test 07/05/21 13:40 Maternal Serum HCG Beta Subunit 355 mIU/mL (ISAURO DREW APRN) EKG: EKG: [] (ISAURO DREW APRN) Radiology/Procedures: Radiology/Procedures: [] (ISAURO DREW APRN) Heart Score: C/O Chest Pain: No Risk Factors: Risk Factors: DM, Current or recent (<one month) smoker, HTN, HLP, family history of CAD, obesity. Risk Scores: Score 0 - 3: 2.5% MACE over next 6 weeks - Discharge Home Score 4 - 6: 20.3% MACE over next 6 weeks - Admit for Clinical Observation Score 7 - 10: 72.7% MACE over next 6 weeks - Early Invasive Strategies (ISAURO DREW APRN) Course & Med Decision Making: Course & Med Decision Making Pertinent Labs and Imaging studies reviewed. (See chart for details) [] Patient is a 25-year-old female who presents to the ER for a beta hCG draw. Beta-hCG drawn was performed in the ER today and it showed a level of 355. 2days ago patient's beta-hCG level is 218. This is about a 50% increase. Patient advised to follow-up with her PURCHASING DEPARTMENT CLERK for repeat beta hCG level checks. I discussed with patient all findings and diagnostic testing as well as the need to follow-up with PCP for further evaluation and treatment or return to the ER if any new or worsening symptoms. Strict return precautions were also discussed at length. Patient voiced understanding and agreement with the plan. Patient is hemodynamically stable at the time of disposition. (ISAURO DREW APRN) Dragon Disclaimer: Dragon Disclaimer: This electronic medical record was generated, in whole or in part, using a voice recognition dictation system. (ISAURO DREW APRN) Departure Departure: Impression: Primary Impression: Routine lab draw Disposition: HOME / SELF CARE / HOMELESS Condition: GOOD Referrals: PCP,DAVID (PCP) Patient Instructions: ABCs of Additional Instructions: You were seen in the ER for a beta-hCG level draw. Your beta hCG level 2 days ago was 218 and on the regional today is 355. This is reassuring. Please follow-up with your OB as soon as possible. Take vitamins at home. Please return to the ER if you develop abdominal pain, vaginal bleeding, intractable nausea or vomiting or any new concerns. EMERGENCY DEPARTMENT GENERAL DISCHARGE INSTRUCTIONS Thank you for coming to [facility] (ED) today and trusting us with you care. We trust that you had a positivie experience in our Emergency Department. If you wish to speak to the department management, you may call the director at [phone]. YOUR FOLLOW UP INSTRUCTIONS ARE FOLLOWS: 1. Do you have a private Doctor? If you do not have a private doctor, please ask for a resource list of physicians or clinics that may be able to assist you with follow up care. 2. The Emergency Physician has interpreted your x-rays. The X-Ray specialist will also review them. If there is a change in the findings, you will be notified in 48 hours when at all possible. 3. A lab test or culture has been done, your results will be reviewed and you will be notified if you need a change in treatment. ADDITIONAL INSTRUCTIONS AND INFORMATION: 1. Your care today has been supervised by a physician who is specially trained in emergency care. Many problems require more than one evaluation for a complete diagnosis and treatment. We recommend that you schedule your follow up appointment as recommended to ensure complete treatment of you illness or injury. If you are unable to obtain follow up care and continue to have a problem, or if your condition worsens, we recommend that you return to the ED. 2. We are not able to safely determine your condition over the phone nor are we able to give sound medical advice over the phone. For these safety reasons, if you call for medical advice we will ask you to come to the ED for further evaluation. 3. If you have any questions regarding these discharge instructions please call the ED at [phone]. SAFETY INFORMATION: In the interest of safety, wellness, and injury prevention; we encourage you to wear your sealbelt, if you smoke; quite smoking, and we encourage family to use a protective helmet for bicycling and other sporting events that present an increased risk for head injury. IF YOUR SYMPTOMS WORSEN OR NEW SYMPTOMS DEVELOP, OR YOU HAVE CONCERNS ABOUT YOUR CONDITION; OR IF YOUR CONDITION WORSENS WHILE YOU ARE WAITING FOR YOUR FOLLOW UP APPOINTMENT; EITHER CONTACT YOUR PRIMARY CARE DOCTOR, THE PHYSICIAN WHOSE NAME AND NUMBER YOU WERE GIVEN, OR RETURN TO THE ED IMMEDIATELY. Attending Signature Attending Signature I have reviewed the PA/SOCIOLOGY FACULTY MEMBER's note and plan of care. I was available for consultation as needed during the patient's visit in the emergency department. I agree with the clinical impression, plan, and disposition. (SARAH DORANTES DO) ISAURO DREW APRN Jul 05, 2021 13:59 SARAH DORANTES DO Jul 05, 2021 20:36
== END 2021-07-05 15:15 | disposition home or self-care (01) ==
LOC: ER 12:58
DX: O46.91 Antepartum hemorrhage, unspecified, first trimester (principal); Z3A.01 Less than 8 weeks gestation of pregnancy; Z88.0 Allergy status to penicillin
CPT/HCPCS: 36415; 84702; 99283

== ENCOUNTER 2021-07-07 11:46 | Emergency (ER) | payer OTHER ==
[~2021-07-07] VITALS: Ht 160 cm; Wt 122.0 kg
[2021-07-07 12:49] LABS: BASO # 0.1 x10^3/uL (0.0-0.2); BASO % 1 % (0-3); EOS # 0.1 x10^3/uL (0.0-0.7); EOS % 2 % (0-3); HEMATOCRIT 36.3 % (36.0-47.0); HEMOGLOBIN 11.2 g/dL (12.0-15.5); LYMPH # 1.4 x10^3/uL (1.0-4.8); LYMPH % 20 % (24-48); MEAN CORPUSCULAR HEMOGLOBIN 23 pg (25-35); MEAN CORPUSCULAR HGB CONC 31 g/dL (31-37); MEAN CORPUSCULAR VOLUME 75 fL (79-100); MONO # 0.4 x10^3/uL (0.0-1.1); MONO % 6 % (0-9); NEUT # 4.9 x10^3uL (1.8-7.7); NEUT % 71 % (31-73); PLATELET COUNT 258 x10^3/uL (140-400); RED BLOOD COUNT 4.81 x10^6/uL (3.50-5.40); WHITE BLOOD COUNT 6.9 x10^3/uL (4.0-11.0)
[2021-07-07 12:56] LABS: CALCIUM 8.1 mg/dL (8.5-10.1); CREATININE 0.8 mg/dL (0.6-1.0); GFR 88.1; POTASSIUM 3.8 mmol/L (3.5-5.1)
[2021-07-07 13:02] LABS: ALBUMIN 3.4 g/dL (3.4-5.0); ALBUMIN/GLOBULIN RATIO 0.9 (1.0-1.7); TOTAL BILIRUBIN 0.5 mg/dL (0.2-1.0); TOTAL PROTEIN 7.3 g/dL (6.4-8.2)
[2021-07-07 13:27] LABS: BACTERIA,URINE 0 /HPF (0-FEW); BILIRUBIN,URINE NEG (NEG); CLARITY,URINE CLOUDY; COLOR,URINE PINK; GLUCOSE,URINE NEG (NEG); NITRITE,URINE NEG (NEG); RBC,URINE TNTC /HPF (0-2); SQUAMOUS EPITHELIAL CELL,UR FEW /LPF; UROBILINOGEN,URINE 0.2 mg/dL (0.2 mg/dL); WBC,URINE OCC /HPF (0-4)
[2021-07-07 13:28] LABS: HYALINE CASTS, URINE OCC /HPF
--- NOTE | 2021-07-07 13:50 | RAD ---
Exam performed: OB sonogram less than 14 weeks. History:Vaginal bleeding, patient is . Increasing serial beta-hCG Date of service: 07/07/2021. Comparison: Transvaginal ultrasound from 06/18/2021 Technique: Transvaginal. Findings: The uterus measures 7.5 x 3.5 x 3.5cm. There is a tiny gestational sac in the lower endometrial cavi ty. The mean sac diameter measures 0.2 cm corresponding to 4 weeks and 6 days with a sonographic EDC of 03/10/2022. There is some fluid in the cervix. No pole is identified. The right ovary measures 3.1 x 2.4 x 1.9 cm. The left ovary is not clearly seen. No solid or cystic m ass lesions identified. Impression: Single tiny gestational sac seen in the lower endometrial cavity of maturity 4 weeks and 6 days with out pole or yolk sac. Given presence of progressively increasing beta-hCG, very early intrauter ine is suspected. Continued serial beta-hCG levels and short-term interval follow-up ultras ound may be obtained to ensure interval progression of Electronically signed by: Alfreda Bustamante MD (07/07/2021 1:48 PM) [id number]
[2021-07-07 14:28] VITALS: BP 142/72
--- NOTE | 2021-07-07 14:37 | PHYS DOC ---
Past History Past Medical History: No Pertinent History (CONCETTA CANTU APRN) Past Surgical History: Appendectomy, Cholecystectomy, Gastric Bypass, Tonsillectomy, Other Additional Past Surgical Histo: LEG SURGERY (CONCETTA CANTU APRN) Alcohol Use: None (CONCETTA CANTU APRN) General Adult EDM: Chief Complaint: VAGINAL BLEEDING HPI: HPI: Patient is a 25-year-old female who presents with vaginal bleeding, lower abdominal pain with . Patient was seen on Saturday and also Saturday to recheck her quant levels. Patient states this morning she started having clots with her bleeding and an increase in pain. Patient denies taking anything for discomfort or needing anything at this time. G1, P0. (CONCETTA CANTU APRN) Review of Systems: Review of Systems: Constitutional: Denies fever or chills Eyes: Denies change in visual acuity HENT: Denies nasal congestion or sore throat Respiratory: Denies cough or shortness of breath Cardiovascular: Denies chest pain or edema GI: Reports lower abdominal pain, denies nausea, vomiting, bloody stools or diarrhea /vaginal: Denies dysuria. Reports vaginal bleeding and clotting Musculoskeletal: Denies back pain or joint pain Integument: Denies rash Neurologic: Denies headache, focal weakness or sensory changes Endocrine: Denies polyuria or polydipsia Lymphatic: Denies swollen glands Psychiatric: Denies depression or anxiety (CONCETTA CANTU APRN) Allergies: Allergies: Allergies Coded Allergies Type Severity Reaction Last Updated Verified Penicillins Allergy Unknown 07/07/21 Yes (CONCETTA CANTU APRN) Physical Exam: PE: Constitutional: Well developed, well nourished, no acute distress, non-toxic appearance. [] HENT: Normocephalic, atraumatic, bilateral external ears normal, oropharynx moist, no oral exudates, nose normal. [] Eyes: PERRLA, EOMI, conjunctiva normal, no discharge. [] Neck: Normal range of motion, no tenderness, supple, no stridor. [] Cardiovascular:Heart rate regular rhythm, no murmur [] Lungs & Thorax: Bilateral breath sounds clear to auscultation [] Abdomen: Bowel sounds normal, soft, no tenderness, no masses, no pulsatile masses. [] Skin: Warm, dry, no erythema, no rash. [] Back: No tenderness, no CVA tenderness. [] Extremities: No tenderness, no cyanosis, no clubbing, ROM intact, no edema. [] Neurologic: Alert and oriented X 3, normal motor function, normal sensory function, no focal deficits noted. [] Psychologic: Affect normal, judgement normal, mood normal. [] (CONCETTA CANTU APRN) Current Patient Data: Labs: Laboratory Tests Test 07/07/21 12:24 07/07/21 13:02 07/07/21 13:15 White Blood Count 6.9 x10^3/uL (4.0-11.0) Red Blood Count 4.81 x10^6/uL (3.50-5.40) Hemoglobin 11.2 g/dL (12.0-15.5) L Hematocrit 36.3 % (36.0-47.0) Mean Corpuscular Volume 75 fL (79-100) L Mean Corpuscular Hemoglobin 23 pg (25-35) L Mean Corpuscular Hemoglobin Concent 31 g/dL (31-37) Red Cell Distribution Width 16.0 % (11.5-14.5) H Platelet Count 258 x10^3/uL (140-400) Neutrophils (%) (Auto) 71 % (31-73) Lymphocytes (%) (Auto) 20 % (24-48) L Monocytes (%) (Auto) 6 % (0-9) Eosinophils (%) (Auto) 2 % (0-3) Basophils (%) (Auto) 1 % (0-3) Neutrophils # (Auto) 4.9 x10^3uL (1.8-7.7) Lymphocytes # (Auto) 1.4 x10^3/uL (1.0-4.8) Monocytes # (Auto) 0.4 x10^3/uL (0.0-1.1) Eosinophils # (Auto) 0.1 x10^3/uL (0.0-0.7) Basophils # (Auto) 0.1 x10^3/uL (0.0-0.2) Maternal Serum HCG Beta Subunit 676 mIU/mL (0-6) H Sodium Level 142 mmol/L (136-145) Potassium Level 3.8 mmol/L (3.5-5.1) Chloride Level 106 mmol/L (98-107) Carbon Dioxide Level 25 mmol/L (21-32) Anion Gap 11 (6-14) Blood Urea Nitrogen 8 mg/dL (7-20) Creatinine 0.8 mg/dL (0.6-1.0) Estimated GFR (Cockcroft-Gault) 88.1 BUN/Creatinine Ratio 10 (6-20) Glucose Level 113 mg/dL (70-99) H Calcium Level 8.1 mg/dL (8.5-10.1) L Total Bilirubin 0.5 mg/dL (0.2-1.0) Aspartate Amino Transferase (AST) 15 U/L (15-37) Alanine Aminotransferase (ALT) 22 U/L (14-59) Alkaline Phosphatase 66 U/L (46-116) Total Protein 7.3 g/dL (6.4-8.2) Albumin 3.4 g/dL (3.4-5.0) Albumin/Globulin Ratio 0.9 (1.0-1.7) L Urine Collection Type Unknown Urine Color [place] Urine Clarity Cloudy Urine pH 7.0 Urine Specific [place] 1.025 Urine Protein 30 mg/dl (NEG-TRACE) Urine Glucose (UA) Neg mg/dL (NEG) Urine Ketones (Stick) Neg mg/dL (NEG) Urine Blood Large (NEG) Urine Nitrite Neg (NEG) Urine Bilirubin Neg (NEG) Urine Urobilinogen Dipstick 0.2 mg/dL (0.2 mg/dL) Urine Leukocyte Esterase Neg (NEG) Urine RBC Tntc /HPF (0-2) Urine WBC Occ /HPF (0-4) Urine Squamous Epithelial Cells Few /LPF Urine Bacteria 0 /HPF (0-FEW) Urine Hyaline Casts Occ /HPF Urine Mucus Slight /LPF POC Urine HCG, Qualitative hcg positive (Negative) Vital Signs: Vital Signs Date Time Temp Pulse Resp B/P (MAP) Pulse Ox O2 Delivery O2 Flow Rate FiO2 07/07/21 12:03 97.9 101 18 167/96 98 Room Air (CONCETTA CANTU APRN) EKG: EKG: [] (CONCETTA CANTU APRN) Radiology/Procedures: Radiology/Procedures: []Exam performed: OB sonogram less than 14 weeks. History:Vaginal bleeding, patient is . Increasing serial beta-hCG Date of service: 07/07/2021. Comparison: Transvaginal ultrasound from 06/18/2021 Technique: Transvaginal. Findings: The uterus measures 7.5 x 3.5 x 3.5cm. There is a tiny gestational sac in the lower endometrial cavity. The mean sac diameter measures 0.2 cm corresponding to 4 weeks and 6 days with a sonographic EDC of 03/10/2022. There is some fluid in the cervix. No pole is identified. The right ovary measures 3.1 x 2.4 x 1.9 cm. The left ovary is not clearly seen. No solid or cystic mass lesions identified. Impression: Single tiny gestational sac seen in the lower endometrial cavity of maturity 4 weeks and 6 days without pole or yolk sac. Given presence of progressively increasing beta-hCG, very early intrauterine is suspected. Continued serial beta-hCG levels and short-term interval follow-up ultrasound may be obtained to ensure interval progression of Electronically signed by: Alfreda Bustamante MD (07/07/2021 1:48 PM) [id number] (CONCETTA CANTU APRN) Heart Score: C/O Chest Pain: No Risk Factors: Risk Factors: DM, Current or recent (<one month) smoker, HTN, HLP, family history of CAD, obesity. Risk Scores: Score 0 - 3: 2.5% MACE over next 6 weeks - Discharge Home Score 4 - 6: 20.3% MACE over next 6 weeks - Admit for Clinical Observation Score 7 - 10: 72.7% MACE over next 6 weeks - Early Invasive Strategies (CONCETTA CANTU APRN) Course & Med Decision Making: Course & Med Decision Making Pertinent Labs and Imaging studies reviewed. (See chart for details) [] 25-year-old female presents with vaginal bleeding and lower abdominal pain. Patient was seen on Saturday for spotting and returned on Saturday to have a repeat quant levels. Patient states this morning when she went to the bathroom she noticed clots and had an increase in lower abdominal pain. Ultrasound shows Single tiny gestational sac seen in the lower endometrial cavity of maturity 4 weeks and 6 days without pole or yolk sac. early intrauterine is suspected. Discussed results with patient. Patient advised to call [facility] and make an appointment for further management. Patient given strict return precautions. Patient states she understands discharge instructions and is okay with plan. Patient is hemodynamically stable upon disposition. (CONCETTA CANTU APRN) Ananya Disclaimer: Ananya Disclaimer: This electronic medical record was generated, in whole or in part, using a voice recognition dictation system. (CONCETTA CANTU APRN) Attending Co-Sign The patient was seen and interviewed as well as examined at the bedside. The chart was reviewed. The case was discussed. Agree with the plan of care. (CHRISTIN HERNANDEZ DO) Departure Departure: Impression: Primary Impression: Vaginal bleeding in Additional Impression: Abdominal pain in Qualified Codes: O26.891 - Other specified related conditions, first trimester; R10.9 - Unspecified abdominal pain Disposition: HOME / SELF CARE / HOMELESS Condition: STABLE Referrals: PCP,NO (PCP) Patient Instructions: Vaginal Bleeding During , [id number] Additional Instructions: You were seen in the emergency room for vaginal bleeding in . Ultrasound shows Single tiny gestational sac seen in the lower endometrial cavity of maturity 4 weeks and 6 days without pole or yolk sac. Please call [facility] and make an appointment for further management and possible repeat ultrasound and/or hCG levels. Return to the emergency room if you have worsening symptoms or concerns. EMERGENCY DEPARTMENT GENERAL DISCHARGE INSTRUCTIONS Thank you for coming to [facility] (ED) today and trusting us with you care. We trust that you had a positivie experience in our Emergency Department. If you wish to speak to the department management, you may call the director at [phone]. YOUR FOLLOW UP INSTRUCTIONS ARE FOLLOWS: 1. Do you have a private Doctor? If you do not have a private doctor, please ask for a resource list of physicians or clinics that may be able to assist you with follow up care. 2. The Emergency Physician has interpreted your x-rays. The X-Ray specialist will also review them. If there is a change in the findings, you will be notified in 48 hours when at all possible. 3. A lab test or culture has been done, your results will be reviewed and you will be notified if you need a change in treatment. ADDITIONAL INSTRUCTIONS AND INFORMATION: 1. Your care today has been supervised by a physician who is specially trained in emergency care. Many problems require more than one evaluation for a complete diagnosis and treatment. We recommend that you schedule your follow up appointment as recommended to ensure complete treatment of you illness or injury. If you are unable to obtain follow up care and continue to have a problem, or if your condition worsens, we recommend that you return to the ED. 2. We are not able to safely determine your condition over the phone nor are we able to give sound medical advice over the phone. For these safety reasons, if you call for medical advice we will ask you to come to the ED for further evaluation. 3. If you have any questions regarding these discharge instructions please call the ED at [phone]. SAFETY INFORMATION: In the interest of safety, wellness, and injury prevention; we encourage you to wear your sealbelt, if you smoke; quite smoking, and we encourage family to use a protective helmet for bicycling and other sporting events that present an increased risk for head injury. IF YOUR SYMPTOMS WORSEN OR NEW SYMPTOMS DEVELOP, OR YOU HAVE CONCERNS ABOUT YOUR CONDITION; OR IF YOUR CONDITION WORSENS WHILE YOU ARE WAITING FOR YOUR FOLLOW UP APPOINTMENT; EITHER CONTACT YOUR PRIMARY CARE DOCTOR, THE PHYSICIAN WHOSE NAME AND NUMBER YOU WERE GIVEN, OR RETURN TO THE ED IMMEDIATELY. CONCETTA CANTU APRN Jul 07, 2021 14:37 CHRISTIN HERNANDEZ DO Jul 10, 2021 10:15
== END 2021-07-07 14:43 | disposition home or self-care (01) ==
LOC: ER 11:46
DX: O20.8 Other hemorrhage in early pregnancy (principal); O26.891 Other specified pregnancy related conditions, first trimester; R10.30 Lower abdominal pain, unspecified; Z3A.01 Less than 8 weeks gestation of pregnancy
CPT/HCPCS: 36415; 76801; 76817; 80053; 81001; 81025; 84702; 85025; 99284-25

== ENCOUNTER 2021-09-03 15:43 | Emergency (ER) | payer OTHER ==
[~2021-09-03] VITALS: Ht 160 cm; Wt 122.0 kg
[2021-09-03 15:51] VITALS: BP 155/74
[2021-09-03] MEDS ORDERED: HYDROcodone/APAP 5/325MG 1 TAB TABLET PO ONE (16:00)
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
--- NOTE | 2021-09-03 16:20 | RAD ---
EXAM: 3 views of the right elbow 3 views right forearm DATE: 09/03/2021 3:58 PM INDICATION: Reason: fall onto elbow / Spl. Instructions: / History: COMPARISON: No Prior FINDINGS: Moderate right elbow joint effusion. Nondisplaced radial head fracture. No significant soft tissue sw elling. No evidence for distal forearm fracture. IMPRESSION: Nondisplaced radial head fracture with moderate elbow joint effusion. Electronically signed by: Mariano Flores MD (09/03/2021 4:18 PM) [facility]
[2021-09-03] MEDS ORDERED: HYDR-2759 PO (16:34)
== END 2021-09-03 17:01 | disposition home or self-care (01) ==
LOC: ER 15:43
DX: S52.124A Nondisplaced fracture of head of right radius, initial encounter for closed fracture (principal); S50.311A Abrasion of right elbow, initial encounter; Z88.0 Allergy status to penicillin; V09.9XXA Pedestrian injured in unspecified transport accident, initial encounter; Y93.89 Activity, other specified; Y92.89 Other specified places as the place of occurrence of the external cause; Y99.8 Other external cause status
CPT/HCPCS: 73080; 73090; 99284